=== PATIENT | female | born 1970 | race Caucasian/White ===

== ENCOUNTER 2024-09-04 10:28 | Observation (INO) ==
[2024-09-04 11:39] VITALS: BMI 53.6
[2024-09-04] MEDS: LR 1,000 ML IV 1,000 ML IV ONE (12:01)
[2024-09-04] MEDS: OFIRMEV IV 1000 MG VIAL 1,000 MG/100 ML VIAL IV ONE (12:44)
[2024-09-04] MEDS: BRIDION ONE ×2 (12:44→12:45)
[2024-09-04] MEDS: REGLAN INJ 10 MG VIAL ONE (12:44)
[2024-09-04] MEDS: ZOFRAN INJ 4 MG VIAL ONE (12:44)
[2024-09-04] MEDS: TORADOL 30 MG VIAL ONE (12:44)
[2024-09-04] MEDS: DIPRIVAN VIAL 20 ML ONE (12:44)
[2024-09-04] MEDS: ZEMURON 100 MG VIAL ONE (12:44)
[2024-09-04] MEDS: VERSED ONE ×2 (12:45→13:45)
[2024-09-04] MEDS: FENTANYL VIAL INJ 100 mcg ONE (12:45)
[2024-09-04] MEDS: PEPCID 20 MG VIAL ONE (12:57)
[2024-09-04] MEDS: ZOFRAN INJ 4 MG VIAL IVP PRN ×3 (12:58→18:51)
[2024-09-04] MEDS: PEPCID 20 MG VIAL IVP PRN (12:58)
[2024-09-04] MEDS: REGLAN INJ 10 MG VIAL IVP PRN (12:58)
[2024-09-04] MEDS: LR 1,000 ML IV 1,200 ML IV PRN (13:29)
[2024-09-04] MEDS ORDERED: KETAMINE HCL ONE (13:30)
[2024-09-04] MEDS ORDERED: XYLOCAINE 2 % (PLAIN) ONE (13:30)
[2024-09-04] MEDS ORDERED: PRECEDEX INJ VIAL ONE (13:30)
[2024-09-04] MEDS ORDERED: ULTANE GAS IN ONE (13:30)
[2024-09-04] MEDS: VERSED IVP PRN (13:59)
[2024-09-04] MEDS: ANCEF VIAL 1 GRAM ONE (14:01)
[2024-09-04] MEDS: ANCEF VIAL 1 GRAM IV PRN (14:01)
[2024-09-04] MEDS: NS 100 ML IV 100 ML ONE (14:01)
[2024-09-04] MEDS: KETAMINE HCL IV PRN (14:09)
[2024-09-04] MEDS: FENTANYL VIAL INJ 100 mcg IVP PRN (14:09)
[2024-09-04] MEDS ORDERED: XYLOCAINE 2 % (PLAIN) PRN (14:09)
[2024-09-04] MEDS: ZEMURON 100 MG VIAL IVP PRN (14:09)
[2024-09-04] MEDS: DIPRIVAN VIAL 150 ML IVP PRN (14:09)
[2024-09-04] MEDS: EPHEDRINE SULFATE INJ ONE (14:22)
[2024-09-04] MEDS: MARCAINE 0.25% INJ ONE (14:22)
[2024-09-04] MEDS: OFIRMEV IV 1000 MG VIAL 1,000 MG/100 ML VIAL IV PRN (14:30)
[2024-09-04] MEDS: TORADOL 30 MG VIAL IVP PRN (14:31)
[2024-09-04] MEDS: DECADRON INJ ONE (14:32)
[2024-09-04] MEDS: DECADRON INJ IVP PRN (14:32)
[2024-09-04] MEDS: DILAUDID INJ ONE ×2 (14:44→17:15)
[2024-09-04] MEDS ORDERED: BARHEMSYS INJ IVP PRN (14:49)
[2024-09-04] MEDS ORDERED: BENADRYL INJ 50 MG VIAL IVP PRN (14:49)
[2024-09-04] MEDS ORDERED: REGLAN INJ 10 MG VIAL IVP PRN (14:49)
[2024-09-04] MEDS: EPHEDRINE SULFATE INJ IVP PRN (14:55)
[2024-09-04] MEDS: NEO-SYNEPHRINE INJ ONE (15:03)
[2024-09-04] MEDS: DILAUDID INJ IVP PRN ×3 (15:48→22:07)
[2024-09-04] MEDS: NEO-SYNEPHRINE INJ IVP PRN (16:00)
[2024-09-04] MEDS: PRECEDEX INJ VIAL IVP PRN (16:09)
[2024-09-04] MEDS: BRIDION IVP PRN (16:17)
[2024-09-04] MEDS: NS 1,000 ML IV 1,000 ML IV SCH (17:47)
[2024-09-04] MEDS: NS 1,000 ML IV 1,000 ML ONE (18:05)
[2024-09-04] MEDS: COLACE CAP 100 MG PO SCH (20:33)
[2024-09-04] MEDS: NORCO 5/325 MG TAB PO PRN (20:41)
[2024-09-05 04:07] VITALS: PULSE 95
[2024-09-05 06:16] LABS: COR NA(FOR HYPERGLY) 140 mmol/L (136-145); CREATININE 0.86 mg/dL (0.55-1.02); eGFR NON BLACK RACES > 60 (>60)
[2024-09-05 07:45] VITALS: RESP 20
--- NOTE | 2024-09-05 08:05 | NOTE.SOAP ---
Soap Note Note for Day of Date of Exam: 09/05/24 Subjective Data Subjective Data: Patient states she is experiencing pain to posterior GIL site and is requesting to take just oral [place] vs dilaudid moving forward. Did have strikethrough to the lateral surgical site. No calf pain at this time. patient currently on oxygen, although denying trouble breathing. Requesting to go home today. Assessment Assessment: Dressings removed, surgical incisions appear intact with no hematoma or seroma appreciated. CFT <3 sec to each digit, edema present to ankle and surgical sites consistent with post operative course. Healthy/minimal bleeding encountered at surgical incision sites. Plan Plan: Updated [place] from to for pain management Patient to continue NWB Patient to leave dressing intact and follow up outpatient with Dr. Neff Patient to work with PT prior to discharge- plan to discharge to home w/ daughter Scripts are in patients chart D/C saline drip Recommend d/c oxygen if patient no longer requires, last reading was 95
[2024-09-05] MEDS ORDERED: LOVENOX INJ 40 MG SYR SC SCH (09:00)
[2024-09-05 09:06] VITALS: BP 117/59; TEMP 97.9; O2SAT 96
[2024-09-05] MEDS: ASPIRIN PO SCH (09:23)
== END 2024-09-05 09:45 | disposition home or self-care (01) ==
LOC: SURG1 10:28 → MED/SURG 10:28
PROVIDERS: ADMIT Obstetrics & Gynecology Obstetrics; ATTEND Obstetrics & Gynecology Obstetrics
PROC: [UNRECOGNIZED PROCEDURE] (2024-09-04 13:25)
DX: M12.571 Traumatic arthropathy, right ankle and foot; R73.09 Other abnormal glucose; M25.571 Pain in right ankle and joints of right foot; M21.6X1 Other acquired deformities of right foot; M21.961 Unspecified acquired deformity of right lower leg; Z58.89 Other problems related to physical environment; G89.18 Other acute postprocedural pain